=== PATIENT | female | born 1945 | race Caucasian/White ===

== ENCOUNTER 2016-05-11 22:59 | Inpatient (IN) | payer OTHER ==
[~2016-05-11] VITALS: Ht 160 cm; Wt 99.2 kg
[~2016-05-11 22:59] MED LIST: ADVAIR 250/501 DISK IH; AMLODIPINE BESY10 MG PO; CALTRATE 600 +1 EAC1 PO; CITALOPRAM HBR20 MG PO; CLONIDINE HCL0.2 MG PO; CRESTOR40 MG PO; ERGOCALCIF50000 UNIT PO; FOSAMAX PLUS PO; GABAPENTIN600 MG PO; HUMALOG MI100 UNIT/5 SC; K-DUR10 MEQ PO; LASIX20 MG PO; LEVEMIR100 UNIT/2 SC; LEVOTHYROXINE100 MCG PO; LEVOTHYROXINE50 MCG PO; LOPRESSOR25 MG PO; METFORMIN HCL500 MG PO; METRONIDAZOLE500 MG PO; NOVOLOG PE100 UNITS/ SC; NYSTATIN15 GM TP; PLAVIX75 MG PO; PROAIR HFA8.5 GM IH; SPIRIVA RESPIMAT4 GM IH; TOPROL XL100 MG PO
[2016-05-11 23:12] LABS: BASE EXCESS 0 mEq/L (-3 to +3); BICARBONATE 23.9 mEq/L (22-26); CARBOXY HGB 1.8 % (0-5); COMMENTS - BLOOD GASES C+; DEVICE NIV; FI02 100 %; METHEMOGLOBIN 1.1 % (0-1.5); MODE SPONT; PCO2 36 mm Hg (35-45); PO2 247 mm Hg (80-100); SITE LR; pH 7.43 (7.35-7.45)
[2016-05-11 23:13] LABS: TOTAL RESP RATE 31 resp/min
[2016-05-11 23:34] LABS: ADD MIUA? YES; BILIRUBIN NEGATIVE; BLOOD MODERATE; COLOR YELLOW ((YELLOW)); GLUCOSE (STRIP) >=1000; KETONES TRACE; LEUKOCYTES NEGATIVE; NITRITE NEGATIVE; PH, URINE 6.5 (5-8); PROTEIN (STRIP) >=300; SPECIFIC GRAVITY 1.021 (1.000-1.030); UROBILINOGEN 0.2 MG/DL (0.2-1.0)
[2016-05-11 23:47] LABS: HEMATOCRIT 39.6 % (36.0-46.0); MCH 27.8 PG (29.0-34.0); MCHC 33.8 G/DL (30.0-36.0); MCV 82.2 FL (83-99); PLATELET COUNT 192 K/uL (156-360); RBC DIS.WIDTH-SD 44.6 % (39-53); RED BLOOD COUNT 4.82 M/uL (3.80-5.20); WHITE BLOOD COUNT 11.4 K/uL (4.1-10.2)
[2016-05-11 23:52] LABS: BACTERIA 1+; CASTS PRESENT /LPF; CRYSTALS NONE SEEN; EPITHELIAL CELLS RARE; FINE GRANULAR CASTS 0-5 /LPF; MUCUS NONE SEEN; RED BLOOD CELLS 0-5 /HPF (0-5); UCUL ADDED? NO; WHITE BLOOD CELLS NONE SEEN /HPF (0-5)
[2016-05-11 23:55] LABS: EOSINOPHIL (%) 0.9 % (0-5); EOSINOPHIL COUNT 0.1 K/uL (0-0.3); IMMATURE GRANULOCYTE (%) 0.7 % (0.0-0.7); IMMATURE GRANULOCYTE COUNT 0.8 K/uL; LYMPHOCYTE COUNT 0.5 K/uL (1.0-2.8); MONOCYTE (%) 4.9 % (3-12); MONOCYTE COUNT 0.6 K/uL (0-0.8); NEUTROPHIL (%) 89.2 % (45-76); NEUTROPHIL COUNT 10.1 K/uL (1.8-6.4)
[2016-05-11 23:59] LABS: INTER. NORMALIZED RATIO 1.1; PROTHROMBIN TIME 11.5 (9.2-11.2)
[2016-05-12] VITALS (18 sets, daily range): BP systolic 120–179; BP diastolic 47–77
[2016-05-12 00:03] LABS: CHLORIDE 100 mEq/L (99-109); POTASSIUM 3.2 mEq/L (3.7-5.4); SODIUM 138 mEq/L (136-147)
[2016-05-12 00:06] LABS: ANION GAP 16 MEQ/L (2-14)
[2016-05-12 00:09] LABS: GFR ESTIMATE (CALCULATED) 20 mL/min/
[2016-05-12 00:10] LABS: UREA NITROGEN (BUN) 35 mg/dL (9-23)
[2016-05-12 00:11] LABS: TROP-I INTERPRETATION NEGATIVE; TROPONIN-I 0.14 ng/mL (0.0-0.30)
[2016-05-12 00:18] LABS: GLUCOSE 494 mg/dL (70-99)
[2016-05-12 00:27] LABS: INFLUENZA A VIRAL ANTIGEN NEGATIVE; INFLUENZA B VIRAL ANTIGEN NEGATIVE
[2016-05-12] MEDS ORDERED: LEVEMIR100 UNIT/2 SC ×2 (01:41→01:42)
[2016-05-12] MEDS ORDERED: ERGOCALCIF50000 UNIT PO (01:42)
[2016-05-12] MEDS ORDERED: METOPROLOL TART50 MG PO (01:44)
[2016-05-12] MEDS ORDERED: PROVENTIL,2.5 MG/3 M IH (01:46)
[2016-05-12] MEDS ORDERED: HYDROCODON-ACE1 EAC7 PO (01:46)
[2016-05-12] MEDS ORDERED: LANSOPRAZOLE30 MG PO (01:46)
[2016-05-12] MEDS ORDERED: CHLORTHALIDONE25 MG PO (01:46)
[2016-05-12] MEDS ORDERED: TRESIBA FL200 UNIT/1 SC (01:47)
[2016-05-12] MEDS ORDERED: PERCOCET 5/31 TABLET PO (01:47)
[2016-05-12] MEDS ORDERED: MICARDIS80 MG PO (01:47)
[2016-05-12] MEDS ORDERED: APRESOLINE50 MG PO (01:49)
[2016-05-12 03:19] LABS: BASE EXCESS -4.1 mEq/L (-3 to +3); BICARBONATE 20.9 mEq/L (22-26); CARBOXY HGB 1.6 % (0-5); PCO2 37 mm Hg (35-45); pH 7.36 (7.35-7.45)
[2016-05-12 03:20] LABS: COMMENTS - BLOOD GASES C+; DEVICE NC; O2 FLOW 3 L/MIN; PO2 67 mm Hg (80-100); SITE RR; TOTAL RESP RATE 25 resp/min
[2016-05-12 03:37] LABS: POINT-OF-CARE METER ID UU13113702
[2016-05-12 05:26] LABS: METH RESISTANT S AUREUS PCR NEGATIVE (NEGATIVE)
[2016-05-12 05:39] LABS: PROBE CHECK PASS; SPECIMEN PROCESSING CONTROL PASS
[2016-05-12 06:28] LABS: HEMATOCRIT 37.2 % (36.0-46.0); MCH 27.4 PG (29.0-34.0); MCV 85.7 FL (83-99); MEAN PLAT.VOLUME 10.6 uM^3 (9.5-12.4); PLATELET COUNT 182 K/uL (156-360); RBC DIS.WIDTH-CV 15.3 % (11.8-14.6); RBC DIS.WIDTH-SD 47.8 % (39-53); RED BLOOD COUNT 4.34 M/uL (3.80-5.20); WHITE BLOOD COUNT 12.8 K/uL (4.1-10.2)
[2016-05-12 06:46] LABS: EOSINOPHIL (%) 0 % (0-5); IMMATURE GRANULOCYTE (%) 0.3 % (0.0-0.7); LYMPHOCYTE COUNT 0.6 K/uL (1.0-2.8); MONOCYTE COUNT 0.8 K/uL (0-0.8); NEUTROPHIL (%) 88.7 % (45-76); NEUTROPHIL COUNT 11.3 K/uL (1.8-6.4)
[2016-05-12 06:57] LABS: TROP-I INTERPRETATION NEGATIVE; TROPONIN-I 0.17 ng/mL (0.0-0.30)
[2016-05-12 07:08] LABS: ANION GAP 17 MEQ/L (2-14); CHLORIDE 101 MEQ/L (99-109); GFR ESTIMATE (CALCULATED) 22 mL/min/; GLUCOSE 438 mg/dL (70-99); POTASSIUM 3.3 MEQ/L (3.7-5.4); SAMPLE HEMOLYSIS CHECK 0; SAMPLE ICTERIC CHECK 0; SAMPLE LIPEMIA CHECK 0; SODIUM 139 MEQ/L (136-147); UREA NITROGEN (BUN) 36 mg/dL (9-23)
[2016-05-12 09:14] LABS: INTERNAL CONTROL VALID? YES
[2016-05-12 10:13] LABS: C DIFF TOXIN NEGATIVE (NEGATIVE)
[2016-05-12 10:15] LABS: PROBE CHECK PASS; SPECIMEN PROCESSING CONTROL PASS
[2016-05-12 12:02] LABS: TROP-I INTERPRETATION NEGATIVE; TROPONIN-I 0.12 ng/mL (0.0-0.30)
[2016-05-12 12:13] LABS: BASE EXCESS -2.8 mEq/L (-3 to +3); BICARBONATE 23.2 mEq/L (22-26); CARBOXY HGB 2.2 % (0-5); COMMENTS - BLOOD GASES A+C+; DEVICE NC; METHEMOGLOBIN 1.3 % (0-1.5); O2 FLOW 3 L/MIN; PCO2 44 mm Hg (35-45); PO2 79 mm Hg (80-100); SITE LR; TOTAL RESP RATE 20 resp/min; pH 7.33 (7.35-7.45)
[2016-05-12 12:14] LABS: POINT-OF-CARE METER ID UU14174217
[2016-05-12 17:07] LABS: POINT-OF-CARE METER ID UU14174217
[2016-05-12 21:22] LABS: POINT-OF-CARE METER ID UU14174217
[2016-05-13] VITALS (13 sets, daily range): BP systolic 90–146; BP diastolic 35–111
[2016-05-13 08:32] LABS: HEMATOCRIT 34.5 % (36.0-46.0); MCHC 32.8 G/DL (30.0-36.0); MCV 85.6 FL (83-99); MEAN PLAT.VOLUME 10.7 uM^3 (9.5-12.4); PLATELET COUNT 182 K/uL (156-360); RBC DIS.WIDTH-CV 15.6 % (11.8-14.6); RED BLOOD COUNT 4.03 M/uL (3.80-5.20)
[2016-05-13 09:21] LABS: TROP-I INTERPRETATION NEGATIVE; TROPONIN-I 0.15 ng/mL (0.0-0.30)
[2016-05-13 09:22] LABS: ANION GAP 13 MEQ/L (2-14); CHLORIDE 103 MEQ/L (99-109); GFR ESTIMATE (CALCULATED) 15 mL/min/; GLUCOSE 284 mg/dL (70-99); SAMPLE HEMOLYSIS CHECK 0; SAMPLE ICTERIC CHECK 0; SAMPLE LIPEMIA CHECK 0; SODIUM 134 MEQ/L (136-147); UREA NITROGEN (BUN) 48 mg/dL (9-23)
[2016-05-13 13:21] LABS: VANCOMYCIN, TROUGH 11.4 MCG/ML (10-20)
[2016-05-13 16:48] LABS: CREATINE KINASE 81 IU/L (1-294)
[2016-05-13 19:20] LABS: ANION GAP 12 MEQ/L (2-14); CHLORIDE 99 MEQ/L (99-109); GFR ESTIMATE (CALCULATED) 13 mL/min/; POTASSIUM 3.3 MEQ/L (3.7-5.4); SAMPLE HEMOLYSIS CHECK 0; SAMPLE ICTERIC CHECK 0; SAMPLE LIPEMIA CHECK 0; SODIUM 129 MEQ/L (136-147); UREA NITROGEN (BUN) 59 mg/dL (9-23)
[2016-05-13 19:40] LABS: GLUCOSE 436 mg/dL (70-99)
[2016-05-14] VITALS (21 sets, daily range): BP systolic 88–138; BP diastolic 32–77
[2016-05-14 01:45] LABS: POINT-OF-CARE METER ID UU14162636; POINT-OF-CARE USER ID ENVSME70
[2016-05-14 02:31] LABS: POINT-OF-CARE METER ID UU14162636
[2016-05-14 03:44] LABS: POINT-OF-CARE METER ID UU14162636
[2016-05-14 04:53] LABS: POINT-OF-CARE METER ID UU14162636
[2016-05-14 05:45] LABS: POINT-OF-CARE METER ID UU14162636
[2016-05-14 06:02] LABS: HEMATOCRIT 32.2 % (36.0-46.0); MCH 27.1 PG (29.0-34.0); MCV 84.7 FL (83-99); PLATELET COUNT 199 K/uL (156-360); RBC DIS.WIDTH-CV 15.7 % (11.8-14.6); RBC DIS.WIDTH-SD 48.6 % (39-53); WHITE BLOOD COUNT 15.2 K/uL (4.1-10.2)
[2016-05-14 06:47] LABS: ANION GAP 15 MEQ/L (2-14); CHLORIDE 102 MEQ/L (99-109); GFR ESTIMATE (CALCULATED) 11 mL/min/; GLUCOSE 221 mg/dL (70-99); IRON 33 MCG/DL (35-150); MAGNESIUM 1.9 mg/dl (1.3-2.7); POTASSIUM 3.5 MEQ/L (3.7-5.4); SAMPLE HEMOLYSIS CHECK 0; SAMPLE ICTERIC CHECK 0; SAMPLE LIPEMIA CHECK 0; SODIUM 133 MEQ/L (136-147); UREA NITROGEN (BUN) 70 mg/dL (9-23)
[2016-05-14 06:51] LABS: POINT-OF-CARE METER ID UU13113803
[2016-05-14 07:37] LABS: INTACT PARATHYROID HORMONE 413 pg/mL (10-69)
[2016-05-14 07:56] LABS: POINT-OF-CARE METER ID UU13113803
[2016-05-14 08:57] LABS: POINT-OF-CARE METER ID UU13113803
[2016-05-14 09:57] LABS: POINT-OF-CARE METER ID UU13113803
[2016-05-14 10:48] LABS: POINT-OF-CARE METER ID UU13113803
[2016-05-14 11:25] LABS: UR CREATININE CONCENTRATION 125.1 MG/DL
[2016-05-14 11:32] LABS: POINT-OF-CARE METER ID UU13113803
[2016-05-14 12:35] LABS: POINT-OF-CARE METER ID UU13113803
[2016-05-14 13:37] LABS: POINT-OF-CARE METER ID UU13113803
[2016-05-14 14:41] LABS: POINT-OF-CARE METER ID UU13113803
[2016-05-14 15:55] LABS: POINT-OF-CARE METER ID UU13113803
[2016-05-14 17:58] LABS: POINT-OF-CARE METER ID UU14162636
[2016-05-14 21:47] LABS: POINT-OF-CARE METER ID UU14162636
[2016-05-15] VITALS (13 sets, daily range): BP systolic 99–122; BP diastolic 38–58
[2016-05-15 06:59] LABS: ANION GAP 16 MEQ/L (2-14); CHLORIDE 100 MEQ/L (99-109); GFR ESTIMATE (CALCULATED) 10 mL/min/; GLUCOSE 314 mg/dL (70-99); SAMPLE HEMOLYSIS CHECK 0; SAMPLE ICTERIC CHECK 0; SAMPLE LIPEMIA CHECK 0; SODIUM 132 MEQ/L (136-147); UREA NITROGEN (BUN) 87 mg/dL (9-23)
[2016-05-15 07:00] LABS: MAGNESIUM 2.6 mg/dl (1.3-2.7); POTASSIUM 4.3 MEQ/L (3.7-5.4)
[2016-05-15 09:21] LABS: POINT-OF-CARE METER ID UU14162636
[2016-05-15 10:05] LABS: POINT-OF-CARE METER ID UU14162636
[2016-05-15 10:05] LABS: POINT-OF-CARE METER ID UU13113748
[2016-05-15 10:05] LABS: POINT-OF-CARE METER ID UU14162636
[2016-05-15 10:05] LABS: POINT-OF-CARE METER ID UU14162636
[2016-05-15 10:05] LABS: POINT-OF-CARE METER ID UU13113748
[2016-05-15 10:05] LABS: POINT-OF-CARE METER ID UU13113748
[2016-05-15 21:50] LABS: POINT-OF-CARE METER ID UU13113698
[2016-05-16] VITALS (7 sets, daily range): BP systolic 97–134; BP diastolic 54–77
[2016-05-16 02:49] LABS: POINT-OF-CARE METER ID UU13113698
[2016-05-16 05:28] LABS: EOSINOPHIL (%) 0.4 % (0-5); EOSINOPHIL COUNT 0.1 K/uL (0-0.3); HEMATOCRIT 34.2 % (36.0-46.0); IMMATURE GRANULOCYTE (%) 1.8 % (0.0-0.7); IMMATURE GRANULOCYTE COUNT 0.3 K/uL; LYMPHOCYTE COUNT 0.5 K/uL (1.0-2.8); MCH 27.8 PG (29.0-34.0); MCV 84.2 FL (83-99); MONOCYTE (%) 3.5 % (3-12); MONOCYTE COUNT 0.6 K/uL (0-0.8); NEUTROPHIL (%) 91.3 % (45-76); NEUTROPHIL COUNT 16.6 K/uL (1.8-6.4); RED BLOOD COUNT 4.06 M/uL (3.80-5.20); WHITE BLOOD COUNT 18.1 K/uL (4.1-10.2)
[2016-05-16 05:53] LABS: ANION GAP 18 MEQ/L (2-14); CHLORIDE 97 MEQ/L (99-109); GFR ESTIMATE (CALCULATED) 8 mL/min/; GLUCOSE 256 mg/dL (70-99); SAMPLE HEMOLYSIS CHECK 0; SAMPLE ICTERIC CHECK 0; SAMPLE LIPEMIA CHECK 0; SODIUM 131 MEQ/L (136-147); UREA NITROGEN (BUN) 99 mg/dL (9-23); URIC ACID 11.3 mg/dL (3.1-9.2)
[2016-05-16 05:59] LABS: MEAN PLAT.VOLUME 10.6 uM^3 (9.5-12.4)
[2016-05-16 06:01] LABS: PLATELET COUNT 284 K/uL (156-360)
[2016-05-16 10:22] LABS: POINT-OF-CARE USER ID NUTSLF44
[2016-05-16 18:37] LABS: POINT-OF-CARE METER ID UU14174216
[2016-05-17 04:45] VITALS: BP 127/68
[2016-05-17 05:01] LABS: HEMATOCRIT 37.1 % (36.0-46.0); MCH 27.5 PG (29.0-34.0); MCHC 33.7 G/DL (30.0-36.0); MCV 81.7 FL (83-99); MEAN PLAT.VOLUME 10.6 uM^3 (9.5-12.4); PLATELET COUNT 351 K/uL (156-360); RBC DIS.WIDTH-CV 16.1 % (11.8-14.6); RBC DIS.WIDTH-SD 47.6 % (39-53); RED BLOOD COUNT 4.54 M/uL (3.80-5.20); WHITE BLOOD COUNT 22.7 K/uL (4.1-10.2)
[2016-05-17 05:13] LABS: CHLORIDE 99 mEq/L (99-109); SODIUM 131 mEq/L (136-147)
[2016-05-17 05:14] LABS: POTASSIUM 5.2 mEq/L (3.7-5.4)
[2016-05-17 05:15] LABS: GLUCOSE 276 mg/dL (70-99)
[2016-05-17 05:19] LABS: GFR ESTIMATE (CALCULATED) 7 mL/min/
[2016-05-17 05:20] LABS: UREA NITROGEN (BUN) 121 mg/dL (9-23)
[2016-05-17 05:29] LABS: ANION GAP 18 MEQ/L (2-14)
[2016-05-17 07:53] LABS: POINT-OF-CARE METER ID UU13113698
[2016-05-17 08:00] VITALS: BP 133/60
[2016-05-17 10:32] LABS: ANTI-HEPATITIS B CORE (TOTAL) Nonreactive; HBCT INDEX 0.03
[2016-05-17 10:33] LABS: HBSG INDEX 0.15; HPCA INDEX 0.05
[2016-05-17 10:34] LABS: HEPATITIS B SURFACE ANTIBODY Nonreactive
[2016-05-17 11:30] VITALS: BP 126/56
[2016-05-17 16:53] LABS: POINT-OF-CARE METER ID UU13113698
[2016-05-17 19:45] VITALS: BP 134/61
[2016-05-17 23:55] VITALS: BP 134/63
[2016-05-18 00:30] LABS: COMMENTS - BLOOD GASES C+A+; CONTINUOUS POS AIRWAY PRESSURE 8 cm H2O; DEVICE CPAP; O2 FLOW 4 L/MIN; PCO2 35 mm Hg (35-45); PO2 68 mm Hg (80-100); SITE LR; pH 7.34 (7.35-7.45)
[2016-05-18 00:31] LABS: BASE EXCESS -6.2 mEq/L (-3 to +3); BICARBONATE 18.9 mEq/L (22-26); METHEMOGLOBIN 1.6 % (0-1.5); TOTAL RESP RATE 20 resp/min
[2016-05-18 04:50] VITALS: BP 124/60
[2016-05-18 05:07] LABS: HEMATOCRIT 35.1 % (36.0-46.0); MCHC 33.3 G/DL (30.0-36.0); MCV 81.1 FL (83-99); PLATELET COUNT 330 K/uL (156-360); RBC DIS.WIDTH-SD 46.8 % (39-53); RED BLOOD COUNT 4.33 M/uL (3.80-5.20); WHITE BLOOD COUNT 20.7 K/uL (4.1-10.2)
[2016-05-18 05:12] LABS: CHLORIDE 102 mEq/L (99-109); POTASSIUM 4.5 mEq/L (3.7-5.4); SODIUM 135 mEq/L (136-147)
[2016-05-18 05:14] LABS: GLUCOSE 206 mg/dL (70-99)
[2016-05-18 05:15] LABS: ANION GAP 16 MEQ/L (2-14)
[2016-05-18 05:17] LABS: GFR ESTIMATE (CALCULATED) 8 mL/min/
[2016-05-18 05:20] LABS: UREA NITROGEN (BUN) 103 mg/dL (9-23)
[2016-05-18 07:15] VITALS: BP 132/59
[2016-05-18 07:26] LABS: POINT-OF-CARE METER ID UU13113781
[2016-05-18 11:30] VITALS: BP 149/70
[2016-05-18 11:30] LABS: POINT-OF-CARE METER ID UU13113781
[2016-05-18 16:07] LABS: POINT-OF-CARE METER ID UU13113698
[2016-05-18 16:45] VITALS: BP 138/72
[2016-05-18 21:05] VITALS: BP 162/70
[2016-05-18 21:23] LABS: POINT-OF-CARE METER ID UU13113781
[2016-05-19 00:08] VITALS: BP 145/63
[2016-05-19 04:08] VITALS: BP 138/63
[2016-05-19 07:50] LABS: HEMATOCRIT 34.6 % (36.0-46.0); MCH 27.4 PG (29.0-34.0); MCHC 32.7 G/DL (30.0-36.0); MCV 83.8 FL (83-99); PLATELET COUNT 313 K/uL (156-360); RBC DIS.WIDTH-CV 16.5 % (11.8-14.6); RBC DIS.WIDTH-SD 50.9 % (39-53); RED BLOOD COUNT 4.13 M/uL (3.80-5.20); WHITE BLOOD COUNT 21.5 K/uL (4.1-10.2)
[2016-05-19 08:07] LABS: ANION GAP 22 MEQ/L (2-14); CHLORIDE 94 MEQ/L (99-109); GFR ESTIMATE (CALCULATED) 8 mL/min/; GLUCOSE 170 mg/dL (70-99); MAGNESIUM 2.4 mg/dl (1.3-2.7); POTASSIUM 4.6 MEQ/L (3.7-5.4); SAMPLE HEMOLYSIS CHECK 0; SAMPLE ICTERIC CHECK 0; SAMPLE LIPEMIA CHECK 0; SODIUM 136 MEQ/L (136-147); UREA NITROGEN (BUN) 90 mg/dL (9-23)
[2016-05-19 11:40] LABS: POINT-OF-CARE METER ID UU13113698
[2016-05-19 12:00] VITALS: BP 148/94
[2016-05-19 16:44] LABS: POINT-OF-CARE METER ID UU13113698
[2016-05-19 17:57] VITALS: BP 138/95
[2016-05-19 20:13] VITALS: BP 136/62
[2016-05-19 23:16] VITALS: BP 159/70
[2016-05-20 03:45] VITALS: BP 183/78
[2016-05-20 06:19] LABS: POINT-OF-CARE METER ID UU13113725
[2016-05-20 07:22] LABS: ANION GAP 16 MEQ/L (2-14); CHLORIDE 97 MEQ/L (99-109); GFR ESTIMATE (CALCULATED) 11 mL/min/; GLUCOSE 203 mg/dL (70-99); MAGNESIUM 2.2 mg/dl (1.3-2.7); POTASSIUM 4.2 MEQ/L (3.7-5.4); SAMPLE HEMOLYSIS CHECK 0; SAMPLE ICTERIC CHECK 0; SAMPLE LIPEMIA CHECK 0; SODIUM 135 MEQ/L (136-147); UREA NITROGEN (BUN) 70 mg/dL (9-23)
[2016-05-20 07:27] LABS: HEMATOCRIT 33.7 % (36.0-46.0); MCH 27.4 PG (29.0-34.0); MCHC 32.6 G/DL (30.0-36.0); PLATELET COUNT 313 K/uL (156-360); RBC DIS.WIDTH-CV 16.2 % (11.8-14.6); RBC DIS.WIDTH-SD 49.3 % (39-53); RED BLOOD COUNT 4.01 M/uL (3.80-5.20); WHITE BLOOD COUNT 22.1 K/uL (4.1-10.2)
[2016-05-20 08:32] VITALS: BP 151/69
[2016-05-20 16:07] LABS: POINT-OF-CARE METER ID UU13113725
[2016-05-20 16:22] VITALS: BP 1518/72
[2016-05-20 20:37] LABS: POINT-OF-CARE METER ID UU13113725
[2016-05-20 22:26] VITALS: BP 148/67
[2016-05-21 03:03] VITALS: BP 156/81
[2016-05-21 04:58] LABS: CHLORIDE 99 mEq/L (99-109); POTASSIUM 4.5 mEq/L (3.7-5.4); SODIUM 135 mEq/L (136-147)
[2016-05-21 05:02] LABS: ANION GAP 18 MEQ/L (2-14)
[2016-05-21 05:04] LABS: GFR ESTIMATE (CALCULATED) 10 mL/min/
[2016-05-21 05:05] LABS: UREA NITROGEN (BUN) 96 mg/dL (9-23)
[2016-05-21 05:07] LABS: GLUCOSE 318 mg/dL (70-99)
[2016-05-21 06:02] LABS: POINT-OF-CARE METER ID UU13113725
[2016-05-21 07:09] LABS: NRBC (%) 0.1 /100 WBC (0-0)
[2016-05-21 07:38] LABS: HEMATOCRIT 35.3 % (36.0-46.0); MCH 27.1 PG (29.0-34.0); MCHC 31.7 G/DL (30.0-36.0); MCV 85.3 FL (83-99); MEAN PLAT.VOLUME 10.9 uM^3 (9.5-12.4); RBC DIS.WIDTH-CV 16.1 % (11.8-14.6); RBC DIS.WIDTH-SD 49.7 % (39-53); RED BLOOD COUNT 4.14 M/uL (3.80-5.20)
[2016-05-21 07:41] LABS: DELETE MACHINE DIFF? YES; PLATELET COUNT 407 K/uL (156-360); WHITE BLOOD COUNT 29.2 K/uL (4.1-10.2)
[2016-05-21 07:49] LABS: ABS NEUTROPHIL COUNT 27.17; ANISOCYTOSIS 1+; BASOPHIL COUNT 0.1 K/uL (0-0.1); EOSINOPHIL (%) 0 % (0-5); IMMATURE GRANULOCYTE (%) 5.4 % (0.0-0.7); IMMATURE GRANULOCYTE COUNT 1.6 K/uL; LYMPHOCYTE COUNT 0.9 K/uL (1.0-2.8); MACROCYTES OCC; MONOCYTE (%) 1.1 % (3-12); MONOCYTE COUNT 0.3 K/uL (0-0.8); NEUTROPHIL (%) 90.3 % (45-76); NEUTROPHIL COUNT 26.4 K/uL (1.8-6.4); PLAT.SUFFICIENCY INCREASED; USER ID CCL
[2016-05-21 12:04] LABS: POINT-OF-CARE METER ID UU13113717
[2016-05-21 13:25] VITALS: BP 141/65
[2016-05-21 15:00] VITALS: BP 171/74
[2016-05-21 15:50] LABS: POINT-OF-CARE METER ID UU13113725
[2016-05-21 19:30] VITALS: BP 133/61
[2016-05-21 21:03] LABS: POINT-OF-CARE METER ID UU13113725
[2016-05-21 23:21] VITALS: BP 158/71
[2016-05-22 03:59] VITALS: BP 147/82
[2016-05-22 05:00] LABS: CHLORIDE 103 mEq/L (99-109); POTASSIUM 4.7 mEq/L (3.7-5.4); SODIUM 138 mEq/L (136-147)
[2016-05-22 05:01] LABS: GLUCOSE 191 mg/dL (70-99)
[2016-05-22 05:03] LABS: ANION GAP 16 MEQ/L (2-14)
[2016-05-22 05:05] LABS: GFR ESTIMATE (CALCULATED) 13 mL/min/
[2016-05-22 05:06] LABS: UREA NITROGEN (BUN) 71 mg/dL (9-23)
[2016-05-22 05:57] LABS: POINT-OF-CARE METER ID UU13113725
[2016-05-22 07:37] VITALS: BP 133/63
[2016-05-22 08:07] LABS: HEMATOCRIT 36.9 % (36.0-46.0); MCH 27.4 PG (29.0-34.0); MCHC 31.7 G/DL (30.0-36.0); MCV 86.4 FL (83-99); PLATELET COUNT 350 K/uL (156-360); RBC DIS.WIDTH-CV 16.3 % (11.8-14.6); RBC DIS.WIDTH-SD 51.2 % (39-53); RED BLOOD COUNT 4.27 M/uL (3.80-5.20); WHITE BLOOD COUNT 25.1 K/uL (4.1-10.2)
[2016-05-22 08:43] LABS: EOSINOPHIL (%) 0 % (0-5); HEMATOLOGY COMMENT 1 SMEAR COMPATIBLE; IMMATURE GRANULOCYTE (%) 3.2 % (0.0-0.7); IMMATURE GRANULOCYTE COUNT 0.8 K/uL; LYMPHOCYTE COUNT 0.8 K/uL (1.0-2.8); MONOCYTE (%) 0.3 % (3-12); MONOCYTE COUNT 0.1 K/uL (0-0.8); NEUTROPHIL (%) 93.4 % (45-76); NEUTROPHIL COUNT 23.4 K/uL (1.8-6.4); USER ID SDF
[2016-05-22 11:31] LABS: POINT-OF-CARE METER ID UU13113725
[2016-05-22 11:46] VITALS: BP 170/74
[2016-05-22 15:27] VITALS: BP 160/75
[2016-05-22 16:29] LABS: POINT-OF-CARE METER ID UU13113725
[2016-05-22 19:48] VITALS: BP 177/78
[2016-05-22 21:27] LABS: POINT-OF-CARE METER ID UU13113725
[2016-05-22 23:39] VITALS: BP 160/74
[2016-05-23 03:50] VITALS: BP 161/72
[2016-05-23 06:25] LABS: POINT-OF-CARE METER ID UU13113717
[2016-05-23 07:00] LABS: ANION GAP 15 MEQ/L (2-14); CHLORIDE 102 MEQ/L (99-109); GFR ESTIMATE (CALCULATED) 12 mL/min/; GLUCOSE 236 mg/dL (70-99); POTASSIUM 4.1 MEQ/L (3.7-5.4); SAMPLE HEMOLYSIS CHECK 0; SAMPLE ICTERIC CHECK 0; SAMPLE LIPEMIA CHECK 0; SODIUM 139 MEQ/L (136-147); UREA NITROGEN (BUN) 89 mg/dL (9-23)
[2016-05-23 07:19] VITALS: BP 145/67
[2016-05-23 11:14] VITALS: BP 147/63
[2016-05-23 15:26] VITALS: BP 143/65
[2016-05-23 20:57] VITALS: BP 166/72
[2016-05-23 23:35] VITALS: BP 165/70
[2016-05-24] VITALS (7 sets, daily range): BP systolic 124–195; BP diastolic 58–75
[2016-05-24 07:52] LABS: ANION GAP 16 MEQ/L (2-14); CHLORIDE 102 MEQ/L (99-109); GFR ESTIMATE (CALCULATED) 12 mL/min/; POTASSIUM 4.2 MEQ/L (3.7-5.4); SAMPLE HEMOLYSIS CHECK 0; SAMPLE ICTERIC CHECK 0; SAMPLE LIPEMIA CHECK 0; SODIUM 141 MEQ/L (136-147); UREA NITROGEN (BUN) 93 mg/dL (9-23)
[2016-05-24 07:55] LABS: HEMATOCRIT 35.9 % (36.0-46.0); MCH 26.8 PG (29.0-34.0); MCHC 31.5 G/DL (30.0-36.0); MCV 85.1 FL (83-99); MEAN PLAT.VOLUME 10.8 uM^3 (9.5-12.4); PLATELET COUNT 318 K/uL (156-360); RBC DIS.WIDTH-SD 49.2 % (39-53); RED BLOOD COUNT 4.22 M/uL (3.80-5.20); WHITE BLOOD COUNT 24.7 K/uL (4.1-10.2)
[2016-05-24 08:01] LABS: GLUCOSE 47 mg/dL (70-99)
[2016-05-24 16:04] LABS: BASE EXCESS -2.7 mEq/L (-3 to +3); BICARBONATE 22.6 mEq/L (22-26); CARBOXY HGB 1.8 % (0-5); METHEMOGLOBIN 1.8 % (0-1.5); pH 7.36 (7.35-7.45)
[2016-05-24 16:05] LABS: COMMENTS - BLOOD GASES A+C+; DEVICE NC; O2 FLOW 2 L/MIN; PCO2 40 mm Hg (35-45); PO2 91 mm Hg (80-100); SITE LR; TOTAL RESP RATE 20 resp/min
[2016-05-24 16:31] LABS: POINT-OF-CARE METER ID UU13113725
[2016-05-25 04:05] VITALS: BP 161/67
[2016-05-25 06:27] LABS: ANION GAP 14 MEQ/L (2-14); CHLORIDE 104 MEQ/L (99-109); GFR ESTIMATE (CALCULATED) 13 mL/min/; POTASSIUM 4.1 MEQ/L (3.7-5.4); SAMPLE HEMOLYSIS CHECK 0; SAMPLE ICTERIC CHECK 0; SAMPLE LIPEMIA CHECK 0; SODIUM 140 MEQ/L (136-147); UREA NITROGEN (BUN) 92 mg/dL (9-23)
[2016-05-25 06:28] LABS: GLUCOSE 221 mg/dL (70-99)
[2016-05-25 08:13] VITALS: BP 137/65
[2016-05-25 15:32] VITALS: BP 166/69
[2016-05-25 16:47] VITALS: BP 166/69
[2016-05-25 20:18] VITALS: BP 145/75
[2016-05-25 23:29] VITALS: BP 155/79
[2016-05-26 06:44] LABS: ANION GAP 14 MEQ/L (2-14); CHLORIDE 102 MEQ/L (99-109); GFR ESTIMATE (CALCULATED) 13 mL/min/; GLUCOSE 196 mg/dL (70-99); POTASSIUM 4.6 MEQ/L (3.7-5.4); SAMPLE HEMOLYSIS CHECK 0; SAMPLE ICTERIC CHECK 0; SAMPLE LIPEMIA CHECK 0; SODIUM 141 MEQ/L (136-147); UREA NITROGEN (BUN) 92 mg/dL (9-23)
[2016-05-26 07:20] VITALS: BP 158/71
[2016-05-26 12:16] LABS: POINT-OF-CARE METER ID UU13113725
[2016-05-26 16:29] VITALS: BP 156/69
[2016-05-26 22:42] VITALS: BP 133/60
[2016-05-27 06:25] LABS: ANION GAP 12 MEQ/L (2-14); CHLORIDE 101 MEQ/L (99-109); GFR ESTIMATE (CALCULATED) 14 mL/min/; GLUCOSE 201 mg/dL (70-99); POTASSIUM 4.7 MEQ/L (3.7-5.4); SAMPLE HEMOLYSIS CHECK 0; SAMPLE ICTERIC CHECK 0; SAMPLE LIPEMIA CHECK 0; SODIUM 138 MEQ/L (136-147); UREA NITROGEN (BUN) 89 mg/dL (9-23)
[2016-05-27 06:32] LABS: HEMATOCRIT 31.6 % (36.0-46.0); MCH 26.6 PG (29.0-34.0); MCV 85.6 FL (83-99); RBC DIS.WIDTH-CV 16.1 % (11.8-14.6); RED BLOOD COUNT 3.69 M/uL (3.80-5.20)
[2016-05-27 06:36] LABS: WHITE BLOOD COUNT 11.9 K/uL (4.1-10.2)
[2016-05-27 07:20] VITALS: BP 167/94
[2016-05-27 08:02] LABS: PLATELET COUNT 218 K/uL (156-360)
[2016-05-27 16:31] VITALS: BP 132/88
[2016-05-27 20:53] VITALS: BP 145/65
[2016-05-27 21:11] LABS: POINT-OF-CARE METER ID UU13113717
[2016-05-27 21:13] VITALS: BP 124/57
[2016-05-27 22:45] VITALS: BP 147/61
[2016-05-28 06:17] LABS: HEMATOCRIT 34.2 % (36.0-46.0); MCH 27.3 PG (29.0-34.0); MCHC 31.6 G/DL (30.0-36.0); MCV 86.6 FL (83-99); PLATELET COUNT 211 K/uL (156-360); RBC DIS.WIDTH-CV 16.2 % (11.8-14.6); RBC DIS.WIDTH-SD 51.6 % (39-53); RED BLOOD COUNT 3.95 M/uL (3.80-5.20); WHITE BLOOD COUNT 12.3 K/uL (4.1-10.2)
[2016-05-28 06:41] LABS: POINT-OF-CARE METER ID UU13113725
[2016-05-28 06:52] LABS: ANION GAP 14 MEQ/L (2-14); CHLORIDE 100 MEQ/L (99-109); GFR ESTIMATE (CALCULATED) 14 mL/min/; GLUCOSE 130 mg/dL (70-99); POTASSIUM 4.6 MEQ/L (3.7-5.4); SAMPLE HEMOLYSIS CHECK 0; SAMPLE ICTERIC CHECK 0; SAMPLE LIPEMIA CHECK 0; SODIUM 139 MEQ/L (136-147); UREA NITROGEN (BUN) 94 mg/dL (9-23)
[2016-05-28 08:38] VITALS: BP 189/81
[2016-05-28 11:41] LABS: POINT-OF-CARE METER ID UU13113717
[2016-05-28 15:51] VITALS: BP 159/68
[2016-05-28 16:26] LABS: POINT-OF-CARE METER ID UU13113717
[2016-05-28 21:03] LABS: POINT-OF-CARE METER ID UU13113725
[2016-05-28 23:26] VITALS: BP 172/74
[2016-05-29 04:33] LABS: MCH 27.2 PG (29.0-34.0); MCHC 31.8 G/DL (30.0-36.0); MCV 85.6 FL (83-99); MEAN PLAT.VOLUME 10.5 uM^3 (9.5-12.4); PLATELET COUNT 188 K/uL (156-360); RBC DIS.WIDTH-CV 16.2 % (11.8-14.6); RBC DIS.WIDTH-SD 49.3 % (39-53); RED BLOOD COUNT 3.97 M/uL (3.80-5.20); WHITE BLOOD COUNT 10.3 K/uL (4.1-10.2)
[2016-05-29 04:47] LABS: CHLORIDE 102 mEq/L (99-109); POTASSIUM 4.6 mEq/L (3.7-5.4); SODIUM 140 mEq/L (136-147)
[2016-05-29 04:49] LABS: GLUCOSE 206 mg/dL (70-99)
[2016-05-29 04:50] LABS: ANION GAP 14 MEQ/L (2-14)
[2016-05-29 04:53] LABS: GFR ESTIMATE (CALCULATED) 11 mL/min/
[2016-05-29 05:08] LABS: UREA NITROGEN (BUN) 110 mg/dL (9-23)
[2016-05-29 07:50] VITALS: BP 134/71
[2016-05-29 11:34] LABS: POINT-OF-CARE METER ID UU13113725
[2016-05-29 18:16] LABS: POINT-OF-CARE METER ID UU13113725
[2016-05-29 20:54] LABS: POINT-OF-CARE METER ID UU13113725
[2016-05-29 23:31] VITALS: BP 112/53
[2016-05-30 04:46] LABS: CHLORIDE 105 mEq/L (99-109); POTASSIUM 4.3 mEq/L (3.7-5.4); SODIUM 143 mEq/L (136-147)
[2016-05-30 04:50] LABS: ANION GAP 13 MEQ/L (2-14)
[2016-05-30 04:52] LABS: GFR ESTIMATE (CALCULATED) 16 mL/min/
[2016-05-30 04:53] LABS: UREA NITROGEN (BUN) 68 mg/dL (9-23)
[2016-05-30 04:58] LABS: GLUCOSE 61 mg/dL (70-99)
[2016-05-30 05:49] LABS: POINT-OF-CARE METER ID UU13113725
[2016-05-30 07:53] VITALS: BP 130/58
[2016-05-30 11:00] LABS: POINT-OF-CARE METER ID UU13113725
[2016-05-30 11:13] VITALS: BP 108/55
[2016-05-30 16:11] VITALS: BP 181/67
[2016-05-30 23:36] VITALS: BP 116/55
[2016-05-31 04:44] LABS: CHLORIDE 105 mEq/L (99-109); POTASSIUM 4.7 mEq/L (3.7-5.4); SODIUM 143 mEq/L (136-147)
[2016-05-31 04:47] LABS: ANION GAP 13 MEQ/L (2-14)
[2016-05-31 04:50] LABS: GFR ESTIMATE (CALCULATED) 11 mL/min/
[2016-05-31 04:51] LABS: UREA NITROGEN (BUN) 97 mg/dL (9-23)
[2016-05-31 04:55] LABS: GLUCOSE 232 mg/dL (70-99)
[2016-05-31 06:21] LABS: POINT-OF-CARE METER ID UU13113725
[2016-05-31 08:47] VITALS: BP 134/64
[2016-05-31 15:47] VITALS: BP 147/69
[2016-05-31 16:18] LABS: POINT-OF-CARE METER ID UU13113725
[2016-05-31 23:33] VITALS: BP 155/56
[2016-06-01 03:31] VITALS: BP 155/76
[2016-06-01 07:22] LABS: HEMATOCRIT 31.8 % (36.0-46.0); MCH 27.2 PG (29.0-34.0); MCHC 30.5 G/DL (30.0-36.0); MCV 89.1 FL (83-99); MEAN PLAT.VOLUME 10.4 uM^3 (9.5-12.4); PLATELET COUNT 138 K/uL (156-360); RBC DIS.WIDTH-CV 16.6 % (11.8-14.6); RBC DIS.WIDTH-SD 53.9 % (39-53); RED BLOOD COUNT 3.57 M/uL (3.80-5.20)
[2016-06-01 07:27] LABS: WHITE BLOOD COUNT 5.8 K/uL (4.1-10.2)
[2016-06-01 07:30] VITALS: BP 159/77
[2016-06-01 08:34] LABS: ANION GAP 14 MEQ/L (2-14); CHLORIDE 103 MEQ/L (99-109); GFR ESTIMATE (CALCULATED) 12 mL/min/; GLUCOSE 336 mg/dL (70-99); POTASSIUM 4.2 MEQ/L (3.7-5.4); SAMPLE HEMOLYSIS CHECK 0; SAMPLE ICTERIC CHECK 0; SAMPLE LIPEMIA CHECK 0; SODIUM 142 MEQ/L (136-147); THEOPHYLLINE 6.4 MCG/ML (10-20); UREA NITROGEN (BUN) 93 mg/dL (9-23)
[2016-06-01 11:22] VITALS: BP 164/71
[2016-06-01 16:45] VITALS: BP 128/58
[2016-06-01 19:13] VITALS: BP 134/60
[2016-06-01 22:33] VITALS: BP 149/65
[2016-06-02 00:48] LABS: POINT-OF-CARE METER ID UU13113725
[2016-06-02 03:02] VITALS: BP 138/65
[2016-06-02 05:49] LABS: POINT-OF-CARE METER ID UU13113725
[2016-06-02 06:10] LABS: HEMATOCRIT 32.5 % (36.0-46.0); MCH 27.6 PG (29.0-34.0); MCHC 31.1 G/DL (30.0-36.0); MCV 88.8 FL (83-99); PLATELET COUNT 167 K/uL (156-360); RBC DIS.WIDTH-CV 16.8 % (11.8-14.6); RBC DIS.WIDTH-SD 54.2 % (39-53); RED BLOOD COUNT 3.66 M/uL (3.80-5.20)
[2016-06-02 06:11] LABS: WHITE BLOOD COUNT 7.6 K/uL (4.1-10.2)
[2016-06-02 06:21] LABS: ANION GAP 12 MEQ/L (2-14); CHLORIDE 103 MEQ/L (99-109); GFR ESTIMATE (CALCULATED) 14 mL/min/; GLUCOSE 352 mg/dL (70-99); POTASSIUM 4.6 MEQ/L (3.7-5.4); SAMPLE HEMOLYSIS CHECK 0; SAMPLE ICTERIC CHECK 0; SAMPLE LIPEMIA CHECK 0; SODIUM 142 MEQ/L (136-147); UREA NITROGEN (BUN) 66 mg/dL (9-23)
[2016-06-02 08:00] VITALS: BP 142/67
[2016-06-02 16:46] VITALS: BP 143/84
[2016-06-02 19:21] VITALS: BP 132/65
[2016-06-02 22:52] VITALS: BP 134/62
[2016-06-03 03:45] VITALS: BP 132/64
[2016-06-03 06:47] LABS: HEMATOCRIT 30.2 % (36.0-46.0); MCH 27.4 PG (29.0-34.0); MCHC 31.1 G/DL (30.0-36.0); MEAN PLAT.VOLUME 10.7 uM^3 (9.5-12.4); PLATELET COUNT 149 K/uL (156-360); RBC DIS.WIDTH-SD 54.5 % (39-53); RED BLOOD COUNT 3.43 M/uL (3.80-5.20); WHITE BLOOD COUNT 6.2 K/uL (4.1-10.2)
[2016-06-03 07:11] LABS: ANION GAP 13 MEQ/L (2-14); CHLORIDE 105 MEQ/L (99-109); GFR ESTIMATE (CALCULATED) 12 mL/min/; POTASSIUM 4.5 MEQ/L (3.7-5.4); SAMPLE HEMOLYSIS CHECK 0; SAMPLE ICTERIC CHECK 0; SAMPLE LIPEMIA CHECK 0; SODIUM 144 MEQ/L (136-147); UREA NITROGEN (BUN) 78 mg/dL (9-23)
[2016-06-03 07:16] LABS: GLUCOSE 145 mg/dL (70-99)
[2016-06-03 07:55] VITALS: BP 120/53
[2016-06-03 16:00] VITALS: BP 149/65
[2016-06-03 16:21] LABS: POINT-OF-CARE METER ID UU13113725
[2016-06-03 19:22] LABS: POINT-OF-CARE METER ID UU13113725
[2016-06-03 20:44] LABS: POINT-OF-CARE METER ID UU13113725
[2016-06-03 22:45] VITALS: BP 162/60
[2016-06-04 05:37] LABS: POINT-OF-CARE METER ID UU13113725
[2016-06-04 06:45] LABS: HEMATOCRIT 32.2 % (36.0-46.0); MCH 27.2 PG (29.0-34.0); MCHC 30.1 G/DL (30.0-36.0); MCV 90.2 FL (83-99); MEAN PLAT.VOLUME 10.8 uM^3 (9.5-12.4); NRBC (%) 0.3 /100 WBC (0-0); PLATELET COUNT 148 K/uL (156-360); RBC DIS.WIDTH-CV 17.4 % (11.8-14.6); RBC DIS.WIDTH-SD 58.2 % (39-53); RED BLOOD COUNT 3.57 M/uL (3.80-5.20); WHITE BLOOD COUNT 5.2 K/uL (4.1-10.2)
[2016-06-04 07:16] LABS: EOSINOPHIL (%) 3.4 % (0-5); EOSINOPHIL COUNT 0.2 K/uL (0-0.3); IMMATURE GRANULOCYTE (%) 1.5 % (0.0-0.7); IMMATURE GRANULOCYTE COUNT 0.1 K/uL; LYMPHOCYTE COUNT 0.5 K/uL (1.0-2.8); MONOCYTE (%) 2.5 % (3-12); MONOCYTE COUNT 0.1 K/uL (0-0.8); NEUTROPHIL (%) 82.1 % (45-76); NEUTROPHIL COUNT 4.3 K/uL (1.8-6.4)
[2016-06-04 07:20] LABS: ANION GAP 14 MEQ/L (2-14); CHLORIDE 104 MEQ/L (99-109); GFR ESTIMATE (CALCULATED) 12 mL/min/; MAGNESIUM 2.2 mg/dl (1.3-2.7); POTASSIUM 4.5 MEQ/L (3.7-5.4); SAMPLE HEMOLYSIS CHECK 0; SAMPLE ICTERIC CHECK 0; SAMPLE LIPEMIA CHECK 0; SODIUM 142 MEQ/L (136-147); UREA NITROGEN (BUN) 79 mg/dL (9-23)
[2016-06-04 07:23] LABS: GLUCOSE 297 mg/dL (70-99)
[2016-06-04 12:13] VITALS: BP 120/70
[2016-06-04 13:16] LABS: POINT-OF-CARE METER ID UU13113725
[2016-06-04 16:59] VITALS: BP 143/64
[2016-06-04 21:38] LABS: POINT-OF-CARE METER ID UU13113725
[2016-06-04 23:54] VITALS: BP 143/67
[2016-06-05 08:57] VITALS: BP 185/77
[2016-06-05 12:12] LABS: POINT-OF-CARE METER ID UU13113725
[2016-06-05 17:26] VITALS: BP 143/60
[2016-06-05 23:16] VITALS: BP 127/59
[2016-06-06 06:00] LABS: POINT-OF-CARE METER ID UU13113725
[2016-06-06 06:53] LABS: NRBC (%) 0.6 /100 WBC (0-0)
[2016-06-06 07:10] LABS: EOSINOPHIL (%) 2.2 % (0-5); EOSINOPHIL COUNT 0.2 K/uL (0-0.3); HEMATOCRIT 32.3 % (36.0-46.0); IMMATURE GRANULOCYTE (%) 3.3 % (0.0-0.7); IMMATURE GRANULOCYTE COUNT 0.3 K/uL; LYMPHOCYTE COUNT 0.9 K/uL (1.0-2.8); MEAN PLAT.VOLUME 10.5 uM^3 (9.5-12.4); MONOCYTE COUNT 0.4 K/uL (0-0.8); NEUTROPHIL (%) 80.8 % (45-76); NEUTROPHIL COUNT 7.2 K/uL (1.8-6.4); RBC DIS.WIDTH-CV 17.3 % (11.8-14.6); RBC DIS.WIDTH-SD 56.1 % (39-53); RED BLOOD COUNT 3.59 M/uL (3.80-5.20)
[2016-06-06 07:12] LABS: PLATELET COUNT 198 K/uL (156-360); WHITE BLOOD COUNT 8.9 K/uL (4.1-10.2)
[2016-06-06 07:16] LABS: ANION GAP 13 MEQ/L (2-14); CHLORIDE 100 MEQ/L (99-109); GFR ESTIMATE (CALCULATED) 12 mL/min/; GLUCOSE 184 mg/dL (70-99); POTASSIUM 4.3 MEQ/L (3.7-5.4); SAMPLE HEMOLYSIS CHECK 0; SAMPLE ICTERIC CHECK 0; SAMPLE LIPEMIA CHECK 0; SODIUM 140 MEQ/L (136-147); UREA NITROGEN (BUN) 66 mg/dL (9-23)
[2016-06-06 08:00] VITALS: BP 130/61
[2016-06-06 08:08] LABS: HEMATOLOGY COMMENT 1 SMEAR COMPATIBLE; USER ID CCL
[2016-06-06] MEDS ORDERED: LOPRESSOR25 MG PO (11:33)
[2016-06-06] MEDS ORDERED: MYCOSTATIN 100,60 ML PO (11:33)
[2016-06-06] MEDS ORDERED: GABAPENTIN300 MG PO (11:33)
[2016-06-06] MEDS ORDERED: THEOPHYLLINE400 MG PO (11:33)
[2016-06-06] MEDS ORDERED: LEVEMIR100 UNIT/2 SC ×2 (11:33)
[2016-06-06] MEDS ORDERED: BUMETANIDE1 MG PO (11:33)
[2016-06-06] MEDS ORDERED: Magic Mouthwash Garg MM (11:33)
[2016-06-06] MEDS ORDERED: METOPROLOL TART50 MG PO (11:33)
[2016-06-06] MEDS ORDERED: MILLIPRED5 MG PO (11:33)
[2016-06-06] MEDS ORDERED: MUCINEX600 MG PO (11:33)
[2016-06-06] MEDS ORDERED: Zeasorb Antifungal T TP (11:33)
[2016-06-06] MEDS ORDERED: TYLENOL REGULA325 MG PO (11:33)
[2016-06-06] MEDS ORDERED: FLORASTOR250 MG PO (11:33)
[2016-06-06] MEDS ORDERED: AMLODIPINE BESY10 MG PO (11:33)
[2016-06-06] MEDS ORDERED: GUAIFENESIN WI120 M1 PO (11:33)
[2016-06-06] MEDS ORDERED: CALCITRIOL0.25 MCG PO (11:33)
[2016-06-06 11:38] LABS: POINT-OF-CARE METER ID UU13113725
[2016-06-06 12:48] LABS: POINT-OF-CARE METER ID UU13113725
[2016-06-06 18:53] VITALS: BP 140/64
[2016-06-06 20:53] LABS: POINT-OF-CARE METER ID UU13113725
[2016-06-06 22:55] VITALS: BP 116/59
[2016-06-07 06:00] LABS: POINT-OF-CARE METER ID UU13113725
[2016-06-07 06:30] VITALS: BP 130/63
[2016-06-07 07:00] LABS: THEOPHYLLINE 10.7 MCG/ML (10-20)
[2016-06-07 08:28] VITALS: BP 118/57
[2016-06-07 11:54] LABS: POINT-OF-CARE METER ID UU13113725
[2016-06-12] MEDS ORDERED: LEVEMIR FL100 UNIT/1 SC ×2 (21:28→21:38)
[2016-06-12] MEDS ORDERED: ZEASORB-AF70 G1 TP (21:30)
[2016-06-12] MEDS ORDERED: ROCALTROL0.25 MCG PO (21:31)
[2016-06-12] MEDS ORDERED: METOPROLOL TART50 MG PO (21:32)
[2016-06-12] MEDS ORDERED: NORVASC10 MG PO (21:33)
[2016-06-12] MEDS ORDERED: BUMEX1 MG PO (21:34)
[2016-06-12] MEDS ORDERED: FLORASTOR250 MG PO (21:36)
[2016-06-19] MEDS ORDERED: DUONEB 2.5-0.5 M3 ML IPPB (13:02)
[2016-06-19] MEDS ORDERED: ARANESP40 MCG/0.4 IV (13:03)
[2016-06-19] MEDS ORDERED: CALCIUM ACETAT667 MG PO (13:03)
[2016-06-19] MEDS ORDERED: LEVAQUIN750 MG PO (13:05)
[2016-06-19] MEDS ORDERED: LEVEMIR100 UNIT/2 SC ×2 (13:08)
[2016-06-19] MEDS ORDERED: PREDNISONE10 MG PO (13:09)
== END 2016-06-07 16:49 | disposition home or self-care (01) | DRG 871 ==
LOC: EME → EDBD 22:59 → 4WEST 05-12 02:33 → EDOF 05-12 02:33 → 4EAST 05-12 02:33 → 5EAST 05-12 02:33 → 4WEST 05-12 03:39 → 4EAST 05-15 17:17 → 5EAST 05-19 22:54
PROVIDERS: Emergency Medicine; Hospitalist; Internal Medicine; Internal Medicine Cardiovascular Disease; Internal Medicine Critical Care Medicine; Internal Medicine Nephrology
PROC: 02HV33Z Insertion of Infusion Device into Superior Vena Cava, Percutaneous Approach (ICD-10-PCS; principal; 2016-06-03)
DX: A41.9 Sepsis, unspecified organism (principal); J18.9 Pneumonia, unspecified organism; J96.20 Acute and chronic respiratory failure, unspecified whether with hypoxia or hypercapnia; J44.1 Chronic obstructive pulmonary disease with (acute) exacerbation; N18.4 Chronic kidney disease, stage 4 (severe); N17.9 Acute kidney failure, unspecified; N25.81 Secondary hyperparathyroidism of renal origin; I48.3 Typical atrial flutter; E87.2 Acidosis; J44.0 Chronic obstructive pulmonary disease with (acute) lower respiratory infection; I50.42 Chronic combined systolic (congestive) and diastolic (congestive) heart failure; I25.10 Atherosclerotic heart disease of native coronary artery without angina pectoris; D64.9 Anemia, unspecified; E03.9 Hypothyroidism, unspecified; G47.33 Obstructive sleep apnea (adult) (pediatric); I12.9 Hypertensive chronic kidney disease with stage 1 through stage 4 chronic kidney disease, or unspecified chronic kidney disease; R00.0 Tachycardia, unspecified; E87.6 Hypokalemia; E55.9 Vitamin D deficiency, unspecified; T49.0X5A Adverse effect of local antifungal, anti-infective and anti-inflammatory drugs, initial encounter; K21.9 Gastro-esophageal reflux disease without esophagitis; E11.649 Type 2 diabetes mellitus with hypoglycemia without coma; E11.22 Type 2 diabetes mellitus with diabetic chronic kidney disease; Z95.5 Presence of coronary angioplasty implant and graft; Z87.891 Personal history of nicotine dependence; Z92.21 Personal history of antineoplastic chemotherapy; Z85.118 Personal history of other malignant neoplasm of bronchus and lung; Z79.4 Long term (current) use of insulin
CPT/HCPCS: 36600; 71010; 71020; 71250; 74230; 76770; 80048; 80048 91; 80069; 80198; 80202; 81003; 81050; 82306; 82330; 82436; 82550; 82570; 82803; 82948; 83540; 83605; 83735; 83880; 83970; 84145 90; 84156; 84300; 84466; 84484; 84550; 85025; 85027; 85610; 85730; 86704; 86706; 86803; 87040; 87070; 87077; 87181; 87185; 87205; 87340; 87449; 87493; 87502; 87641; 87801; 89190; 92526 GN; 92611 GN; 93005; 93306; 94002; 94010; 94640; 94640 76; 94660; 94667; 94668; 94760; 94799; 97530 GP; 99202; 99281; 99285; C1750; C1752; J0360; J0690; J0692; J0696; J0881; J1644; J1756; J1815; J1940; J2250; J2543; J2920; J2930; J3010; J3370; J3475; J7030; J7040; J7050; J7120; J7512; P9045

== ENCOUNTER 2016-08-31 09:34 | Day surgery (SDC) | payer OTHER ==
[~2016-08-31] VITALS: Ht 157.5 cm; Wt 96.2 kg
[~2016-08-31 09:34] MED LIST changes: +APRESOLINE50 MG PO; +ARANESP40 MCG/0.4 IV; +BUMETANIDE1 MG PO; +BUMEX1 MG PO; +CALCITRIOL0.25 MCG PO; +CALCIUM ACETAT667 MG PO; +CELEXA20 MG PO; +CHLORTHALIDONE25 MG PO; +DUONEB 2.5-0.5 M3 ML IPPB; +FLORASTOR250 MG PO; +GABAPENTIN300 MG PO; +GRALISE300 MG PO; +GUAIFENESIN WI120 M1 PO; +HYDROCODON-ACE1 EAC7 PO; +LANSOPRAZOLE30 MG PO; +LEVAQUIN750 MG PO; +LEVEMIR FL100 UNIT/1 SC; +METOPROLOL TART50 MG PO; +MICARDIS80 MG PO; +MILLIPRED5 MG PO; +MUCINEX600 MG PO; +MYCOSTATIN 100,60 ML PO; +Magic Mouthwash Garg MM; +NORVASC10 MG PO; +PERCOCET 5/31 TABLET PO; +PREDNISONE10 MG PO; +PROVENTIL,2.5 MG/3 M IH; +REQUIP1 MG PO; +ROCALTROL0.25 MCG PO; +THEOPHYLLINE400 MG PO; +THEOPHYLLINE600 MG PO; +TRESIBA FL200 UNIT/1 SC; +TYLENOL REGULA325 MG PO; +VITAMIN D31000 UNIT PO; +ZEASORB-AF70 G1 TP; +Zeasorb Antifungal T TP
[2016-08-31] MEDS ORDERED: METOPROLOL TART25 MG PO (10:53)
[2016-08-31] MEDS ORDERED: LEVEMIR FL100 UNIT/1 SC ×2 (11:01→11:02)
[2016-08-31] MEDS ORDERED: LOPRESSOR50 MG PO (11:07)
[2016-08-31 11:20] LABS: POINT-OF-CARE METER ID UU14174212
[2016-08-31 11:24] LABS: HEMATOCRIT 32.3 % (36.0-46.0); MCH 26.6 PG (29.0-34.0); MCV 88.7 FL (83-99); MEAN PLAT.VOLUME 9.6 uM^3 (9.5-12.4); PLATELET COUNT 317 K/uL (156-360); RBC DIS.WIDTH-CV 14.6 % (11.8-14.6); RBC DIS.WIDTH-SD 46.8 % (39-53); RED BLOOD COUNT 3.64 M/uL (3.80-5.20); WHITE BLOOD COUNT 7.3 K/uL (4.1-10.2)
[2016-08-31 11:38] VITALS: BP 147/86
[2016-08-31 11:58] LABS: ANION GAP 8 MEQ/L (2-14); CHLORIDE 101 MEQ/L (99-109); POTASSIUM 4.2 MEQ/L (3.7-5.4); SAMPLE HEMOLYSIS CHECK 0; SAMPLE ICTERIC CHECK 0; SAMPLE LIPEMIA CHECK 0; SODIUM 142 MEQ/L (136-147)
[2016-08-31 12:03] LABS: GFR ESTIMATE (CALCULATED) 19 mL/min/; GLUCOSE 165 mg/dL (70-99); UREA NITROGEN (BUN) 20 mg/dL (9-23)
[2016-08-31 12:10] LABS: METH RESISTANT S AUREUS PCR NEGATIVE (NEGATIVE); PROBE CHECK PASS; SPECIMEN PROCESSING CONTROL PASS
[2016-08-31 14:53] LABS: POINT-OF-CARE METER ID UU13113675; POINT-OF-CARE USER ID 515036437
[2016-08-31 15:20] VITALS: BP 144/62
[2016-08-31 16:00] VITALS: BP 140/80
== END 2016-08-31 16:30 | disposition home or self-care (01) ==
LOC: SDC 09:34
PROVIDERS: Surgery
DX: I12.0 Hypertensive chronic kidney disease with stage 5 chronic kidney disease or end stage renal disease (principal); E11.22 Type 2 diabetes mellitus with diabetic chronic kidney disease; N18.6 End stage renal disease; Z99.2 Dependence on renal dialysis; J44.9 Chronic obstructive pulmonary disease, unspecified; Z99.81 Dependence on supplemental oxygen; Z87.891 Personal history of nicotine dependence; E78.5 Hyperlipidemia, unspecified; M19.90 Unspecified osteoarthritis, unspecified site; Z85.118 Personal history of other malignant neoplasm of bronchus and lung; Z92.21 Personal history of antineoplastic chemotherapy; Z92.3 Personal history of irradiation; Z98.61 Coronary angioplasty status; Z79.4 Long term (current) use of insulin; Z88.1 Allergy status to other antibiotic agents; Z88.8 Allergy status to other drugs, medicaments and biological substances; Z88.5 Allergy status to narcotic agent; Z82.3 Family history of stroke; Z82.49 Family history of ischemic heart disease and other diseases of the circulatory system; Z83.3 Family history of diabetes mellitus
CPT/HCPCS: 71020; 80048; 82948; 85027; 87641; 94640; J0690; J1644; J2720

== ENCOUNTER → 2016-10-26 | Outpatient (CLI) | payer OTHER ==
[~2016-10-26] MED LIST changes: +LOPRESSOR50 MG PO; +METOPROLOL TART25 MG PO
== END | disposition home or self-care (01) ==
LOC: AMB 08:06
PROC: 02PYX3Z Removal of Infusion Device from Great Vessel, External Approach (ICD-10-PCS; principal; 2016-10-26)
DX: Z45.2 Encounter for adjustment and management of vascular access device (principal); N18.6 End stage renal disease; Z99.2 Dependence on renal dialysis

== ENCOUNTER 2016-11-28 20:15 | Inpatient (IN) | payer OTHER ==
[~2016-11-28] VITALS: Ht 157.5 cm; Wt 99.3 kg
[2016-11-28 21:07] LABS: HEMATOCRIT 33.6 % (36.0-46.0); MCH 28.8 PG (29.0-34.0); MCHC 31.3 G/DL (30.0-36.0); MCV 92.1 FL (83-99); MEAN PLAT.VOLUME 10.3 uM^3 (9.5-12.4); RBC DIS.WIDTH-CV 16.3 % (11.8-14.6); RBC DIS.WIDTH-SD 55.3 % (39-53); RED BLOOD COUNT 3.65 M/uL (3.80-5.20); WHITE BLOOD COUNT 7.6 K/uL (4.1-10.2)
[2016-11-28 21:15] LABS: PLATELET COUNT 171 K/uL (156-360)
[2016-11-28 21:23] LABS: CHLORIDE 102 mEq/L (99-109); POTASSIUM 4.3 mEq/L (3.7-5.4)
[2016-11-28 21:26] LABS: ANION GAP 8 MEQ/L (2-14)
[2016-11-28 21:29] LABS: GFR ESTIMATE (CALCULATED) 31 mL/min/
[2016-11-28 21:30] LABS: UREA NITROGEN (BUN) 13 mg/dL (9-23)
[2016-11-28 21:37] LABS: TROP-I INTERPRETATION NEGATIVE; TROPONIN-I 0.04 ng/mL (0.0-0.30)
[2016-11-28 22:04] LABS: GLUCOSE 345 mg/dL (70-99); SODIUM 135 mEq/L (136-147)
[2016-11-28] MEDS ORDERED: GABAPENTIN300 MG PO (22:51)
[2016-11-28] MEDS ORDERED: THEOPHYLLINE400 MG PO (22:52)
[2016-11-28] MEDS ORDERED: NYATA15 GM TP (22:53)
[2016-11-28 23:05] LABS: MAGNESIUM 1.7 mg/dL (1.3-2.7)
[2016-11-28 23:06] LABS: EOSINOPHIL (%) 1.8 % (0-5); EOSINOPHIL COUNT 0.1 K/uL (0-0.3); IMMATURE GRANULOCYTE (%) 0.7 % (0.0-0.7); IMMATURE GRANULOCYTE COUNT 0.1 K/uL; INSTRUMENT ABS NEUTROPHIL CT 6.5 K/uL; LYMPHOCYTE COUNT 0.3 K/uL (1.0-2.8); MONOCYTE (%) 5.8 % (3-12); MONOCYTE COUNT 0.4 K/uL (0-0.8); NEUTROPHIL (%) 87.3 % (45-76); NEUTROPHIL COUNT 6.5 K/uL (1.8-6.4)
[2016-11-28 23:13] LABS: POINT-OF-CARE METER ID UU14100415
[2016-11-29 00:04] LABS: POINT-OF-CARE METER ID UU14100415
[2016-11-29 00:37] LABS: INTER. NORMALIZED RATIO 1.1; PROTHROMBIN TIME 12.4 SEC (10.2-12.9)
[2016-11-29 00:40] LABS: PTT 29.3 SEC (25-37)
[2016-11-29 01:14] LABS: INFLUENZA A VIRAL ANTIGEN NEGATIVE; INFLUENZA B VIRAL ANTIGEN NEGATIVE
[2016-11-29 04:20] LABS: TROP-I INTERPRETATION NEGATIVE; TROPONIN-I 0.14 ng/mL (0.0-0.30)
[2016-11-29 07:49] LABS: POINT-OF-CARE METER ID UU14100415
[2016-11-29 08:57] LABS: INTER. NORMALIZED RATIO 1.1; PROTHROMBIN TIME 12.6 SEC (10.2-12.9)
[2016-11-29 09:05] LABS: PTT 100.5 SEC (25-37)
[2016-11-29 09:22] LABS: INTERNAL CONTROL VALID? YES
[2016-11-29 13:07] LABS: POINT-OF-CARE METER ID UU14100415
[2016-11-29 13:19] LABS: EOSINOPHIL (%) 3.3 % (0-5); EOSINOPHIL COUNT 0.3 K/uL (0-0.3); HEMATOCRIT 33.4 % (36.0-46.0); IMMATURE GRANULOCYTE (%) 0.4 % (0.0-0.7); INSTRUMENT ABS NEUTROPHIL CT 6.3 K/uL; LYMPHOCYTE COUNT 0.5 K/uL (1.0-2.8); MCH 28.5 PG (29.0-34.0); MCHC 30.2 G/DL (30.0-36.0); MCV 94.1 FL (83-99); MEAN PLAT.VOLUME 9.7 uM^3 (9.5-12.4); MONOCYTE (%) 6.3 % (3-12); MONOCYTE COUNT 0.5 K/uL (0-0.8); NEUTROPHIL (%) 82.9 % (45-76); NEUTROPHIL COUNT 6.3 K/uL (1.8-6.4); RBC DIS.WIDTH-CV 16.5 % (11.8-14.6); RBC DIS.WIDTH-SD 56.7 % (39-53); RED BLOOD COUNT 3.55 M/uL (3.80-5.20); WHITE BLOOD COUNT 7.6 K/uL (4.1-10.2)
[2016-11-29 13:24] LABS: PLATELET COUNT 250 K/uL (156-360)
[2016-11-29 13:42] LABS: TROP-I INTERPRETATION NEGATIVE; TROPONIN-I 0.14 ng/mL (0.0-0.30)
[2016-11-29 17:12] LABS: POINT-OF-CARE METER ID UU14100415
[2016-11-29 17:40] LABS: INTER. NORMALIZED RATIO 1.1
[2016-11-29 17:54] LABS: PTT 54.7 SEC (25-37)
[2016-11-29 20:00] VITALS: BP 142/76
[2016-11-29 21:41] LABS: POINT-OF-CARE METER ID UU13113698
[2016-11-30 00:05] VITALS: BP 139/69
[2016-11-30 01:06] LABS: INTER. NORMALIZED RATIO 1.1; PROTHROMBIN TIME 11.7 SEC (10.2-12.9)
[2016-11-30 01:09] LABS: PTT 58.1 SEC (25-37)
[2016-11-30 04:10] VITALS: BP 127/59
[2016-11-30 06:06] LABS: HEMATOCRIT 33.9 % (36.0-46.0); MCH 28.6 PG (29.0-34.0); MCV 92.4 FL (83-99); MEAN PLAT.VOLUME 10.2 uM^3 (9.5-12.4); PLATELET COUNT 273 K/uL (156-360); RBC DIS.WIDTH-SD 54.5 % (39-53); RED BLOOD COUNT 3.67 M/uL (3.80-5.20); WHITE BLOOD COUNT 8.9 K/uL (4.1-10.2)
[2016-11-30 06:31] LABS: ANION GAP 10 MEQ/L (2-14); CHLORIDE 100 MEQ/L (99-109); GLUCOSE 289 mg/dL (70-99); SAMPLE HEMOLYSIS CHECK 0; SAMPLE ICTERIC CHECK 0; SAMPLE LIPEMIA CHECK 0; SODIUM 137 MEQ/L (136-147)
[2016-11-30 06:37] LABS: GFR ESTIMATE (CALCULATED) 21 mL/min/; POTASSIUM 5.2 MEQ/L (3.7-5.4); UREA NITROGEN (BUN) 24 mg/dL (9-23)
[2016-11-30 06:42] LABS: TROP-I INTERPRETATION NEGATIVE; TROPONIN-I 0.07 ng/mL (0.0-0.30)
[2016-11-30 07:57] LABS: POINT-OF-CARE METER ID UU13113698; POINT-OF-CARE USER ID ENVKC36
[2016-11-30 08:00] VITALS: BP 107/55
[2016-11-30 11:58] LABS: HBSG INDEX 0.28
[2016-11-30 13:00] VITALS: BP 110/68
[2016-11-30 16:52] LABS: POINT-OF-CARE USER ID ENVKC36
[2016-11-30 17:50] VITALS: BP 122/58
[2016-12-01] VITALS (7 sets, daily range): BP systolic 102–156; BP diastolic 53–74
[2016-12-01 07:45] LABS: POINT-OF-CARE METER ID UU13113781
[2016-12-01 12:09] LABS: POINT-OF-CARE METER ID UU13113781
[2016-12-01 16:25] LABS: POINT-OF-CARE METER ID UU13113781
[2016-12-02 04:05] VITALS: BP 122/59
[2016-12-02 06:01] LABS: HEMATOCRIT 32.3 % (36.0-46.0); MCHC 31.9 G/DL (30.0-36.0); MEAN PLAT.VOLUME 10.1 uM^3 (9.5-12.4); PLATELET COUNT 272 K/uL (156-360); RBC DIS.WIDTH-SD 54.6 % (39-53); RED BLOOD COUNT 3.55 M/uL (3.80-5.20); WHITE BLOOD COUNT 19.8 K/uL (4.1-10.2)
[2016-12-02 06:30] LABS: ANION GAP 12 MEQ/L (2-14); CHLORIDE 92 MEQ/L (99-109); GFR ESTIMATE (CALCULATED) 14 mL/min/; GLUCOSE 363 mg/dL (70-99); SAMPLE HEMOLYSIS CHECK 2; SAMPLE ICTERIC CHECK 0; SAMPLE LIPEMIA CHECK 0; SODIUM 130 MEQ/L (136-147); UREA NITROGEN (BUN) 51 mg/dL (9-23)
[2016-12-02 07:26] LABS: POTASSIUM 4.9 MEQ/L (3.7-5.4)
[2016-12-02 08:00] VITALS: BP 143/69
[2016-12-02 11:38] VITALS: BP 139/65
[2016-12-02 16:35] VITALS: BP 160/68
[2016-12-02 19:36] VITALS: BP 113/73
[2016-12-02 23:33] LABS: POINT-OF-CARE METER ID UU13113698
[2016-12-03] VITALS (7 sets, daily range): BP systolic 109–146; BP diastolic 62–85
[2016-12-03 05:48] LABS: MCH 28.6 PG (29.0-34.0); MCHC 31.8 G/DL (30.0-36.0); MCV 90.2 FL (83-99); MEAN PLAT.VOLUME 11.1 uM^3 (9.5-12.4); NRBC (%) 0.4 /100 WBC (0-0); PLATELET COUNT 314 K/uL (156-360); RBC DIS.WIDTH-CV 16.5 % (11.8-14.6); RBC DIS.WIDTH-SD 53.6 % (39-53); RED BLOOD COUNT 3.77 M/uL (3.80-5.20); WHITE BLOOD COUNT 21.5 K/uL (4.1-10.2)
[2016-12-03 06:22] LABS: POINT-OF-CARE METER ID UU13113698
[2016-12-03 08:04] LABS: EOSINOPHIL (%) 0 % (0-5); HEMATOCRIT 32.8 % (36.0-46.0); IMMATURE GRANULOCYTE (%) 1.9 % (0.0-0.7); IMMATURE GRANULOCYTE COUNT 0.4 K/uL; INSTRUMENT ABS NEUTROPHIL CT 18.1 K/uL; LYMPHOCYTE COUNT 0.3 K/uL (1.0-2.8); MCH 29.4 PG (29.0-34.0); MCHC 32.6 G/DL (30.0-36.0); MCV 90.1 FL (83-99); MEAN PLAT.VOLUME 10.3 uM^3 (9.5-12.4); MONOCYTE (%) 3.7 % (3-12); MONOCYTE COUNT 0.7 K/uL (0-0.8); NEUTROPHIL COUNT 18.1 K/uL (1.8-6.4); NRBC (%) 0.3 /100 WBC (0-0); PLATELET COUNT 266 K/uL (156-360); RBC DIS.WIDTH-CV 16.5 % (11.8-14.6); RBC DIS.WIDTH-SD 53.4 % (39-53); RED BLOOD COUNT 3.64 M/uL (3.80-5.20); WHITE BLOOD COUNT 19.5 K/uL (4.1-10.2)
[2016-12-03 08:17] LABS: ANION GAP 15 MEQ/L (2-14); CHLORIDE 93 MEQ/L (99-109); GFR ESTIMATE (CALCULATED) 12 mL/min/; GLUCOSE 394 mg/dL (70-99); POTASSIUM 4.3 MEQ/L (3.7-5.4); SAMPLE HEMOLYSIS CHECK 0; SAMPLE ICTERIC CHECK 0; SAMPLE LIPEMIA CHECK 0; SODIUM 130 MEQ/L (136-147); UREA NITROGEN (BUN) 67 mg/dL (9-23)
[2016-12-03 12:07] LABS: POINT-OF-CARE METER ID UU13113698
[2016-12-03 17:05] LABS: POINT-OF-CARE METER ID UU13113698
[2016-12-03 21:27] LABS: POINT-OF-CARE METER ID UU14174216
[2016-12-04] VITALS (7 sets, daily range): BP systolic 120–177; BP diastolic 49–84
[2016-12-04 05:14] LABS: EOSINOPHIL (%) 0 % (0-5); HEMATOCRIT 33.3 % (36.0-46.0); IMMATURE GRANULOCYTE COUNT 0.4 K/uL; INSTRUMENT ABS NEUTROPHIL CT 17.1 K/uL; LYMPHOCYTE COUNT 0.3 K/uL (1.0-2.8); MCH 28.8 PG (29.0-34.0); MCHC 31.5 G/DL (30.0-36.0); MCV 91.2 FL (83-99); MEAN PLAT.VOLUME 10.5 uM^3 (9.5-12.4); MONOCYTE (%) 4.7 % (3-12); MONOCYTE COUNT 0.9 K/uL (0-0.8); NEUTROPHIL (%) 91.4 % (45-76); NEUTROPHIL COUNT 17.1 K/uL (1.8-6.4); NRBC (%) 0.3 /100 WBC (0-0); PLATELET COUNT 251 K/uL (156-360); RBC DIS.WIDTH-CV 16.9 % (11.8-14.6); RBC DIS.WIDTH-SD 55.8 % (39-53); RED BLOOD COUNT 3.65 M/uL (3.80-5.20); WHITE BLOOD COUNT 18.7 K/uL (4.1-10.2)
[2016-12-04 05:36] LABS: ANION GAP 14 MEQ/L (2-14); CHLORIDE 97 MEQ/L (99-109); GFR ESTIMATE (CALCULATED) 14 mL/min/; GLUCOSE 232 mg/dL (70-99); POTASSIUM 4.5 MEQ/L (3.7-5.4); SAMPLE HEMOLYSIS CHECK 0; SAMPLE ICTERIC CHECK 0; SAMPLE LIPEMIA CHECK 0; SODIUM 135 MEQ/L (136-147); UREA NITROGEN (BUN) 50 mg/dL (9-23)
[2016-12-04 07:36] LABS: POINT-OF-CARE METER ID UU13113698
[2016-12-04] MEDS ORDERED: ELIQUIS5 MG PO (10:13)
[2016-12-04 12:05] LABS: POINT-OF-CARE USER ID ENVKC36
[2016-12-04 16:30] LABS: POINT-OF-CARE METER ID UU14208750
[2016-12-04 21:37] LABS: POINT-OF-CARE METER ID UU14208750
[2016-12-05 03:36] VITALS: BP 134/62
[2016-12-05 05:48] LABS: POINT-OF-CARE METER ID UU14208750
[2016-12-05 07:00] VITALS: BP 170/82
[2016-12-05 09:10] LABS: HEMATOCRIT 33.4 % (36.0-46.0); MCH 28.9 PG (29.0-34.0); MCV 90.3 FL (83-99); MEAN PLAT.VOLUME 10.4 uM^3 (9.5-12.4); NRBC (%) 0.1 /100 WBC (0-0); PLATELET COUNT 251 K/uL (156-360); RBC DIS.WIDTH-CV 17.1 % (11.8-14.6); RBC DIS.WIDTH-SD 54.8 % (39-53); WHITE BLOOD COUNT 15.4 K/uL (4.1-10.2)
[2016-12-05 09:24] LABS: ANION GAP 12 MEQ/L (2-14); CHLORIDE 95 MEQ/L (99-109); MAGNESIUM 1.9 mg/dl (1.3-2.7); POTASSIUM 4.5 MEQ/L (3.7-5.4); SAMPLE HEMOLYSIS CHECK 0; SAMPLE ICTERIC CHECK 0; SAMPLE LIPEMIA CHECK 0; SODIUM 132 MEQ/L (136-147)
[2016-12-05 09:45] LABS: GFR ESTIMATE (CALCULATED) 13 mL/min/; GLUCOSE 258 mg/dL (70-99); UREA NITROGEN (BUN) 75 mg/dL (9-23)
[2016-12-05] MEDS ORDERED: CARVEDILOL6.25 MG PO (10:30)
[2016-12-05] MEDS ORDERED: PREDNISONE20 MG PO (10:30)
[2016-12-05] MEDS ORDERED: CEFTIN250 MG PO (10:30)
[2016-12-05] MEDS ORDERED: DILTIAZEM 24HR180 MG PO (10:30)
[2016-12-05 13:15] VITALS: BP 160/88
[2016-12-05 15:35] VITALS: BP 98/64
== END 2016-12-05 18:21 | disposition home or self-care (01) | DRG 189 ==
LOC: EME 20:15 → EDOF 22:47 → 4EAST 22:47 → ENRESERV 12-04 08:22 → 2EAST 12-04 13:41 → ENPENDDIS 12-05 → 2EAST 12-05 18:21
PROVIDERS: Emergency Medicine; Hospitalist; Internal Medicine; Internal Medicine Cardiovascular Disease; Internal Medicine Nephrology; Physician Assistant; Physician Assistant Medical
DX: J96.21 Acute and chronic respiratory failure with hypoxia (principal); J18.1 Lobar pneumonia, unspecified organism; I13.2 Hypertensive heart and chronic kidney disease with heart failure and with stage 5 chronic kidney disease, or end stage renal disease; J44.1 Chronic obstructive pulmonary disease with (acute) exacerbation; N25.81 Secondary hyperparathyroidism of renal origin; I48.0 Paroxysmal atrial fibrillation; I47.2 Ventricular tachycardia; J84.10 Pulmonary fibrosis, unspecified; N18.6 End stage renal disease; I47.1 Supraventricular tachycardia; E66.01 Morbid (severe) obesity due to excess calories; I50.32 Chronic diastolic (congestive) heart failure; I24.8 Other forms of acute ischemic heart disease; J44.0 Chronic obstructive pulmonary disease with (acute) lower respiratory infection; I48.92 Unspecified atrial flutter; E11.65 Type 2 diabetes mellitus with hyperglycemia; E11.22 Type 2 diabetes mellitus with diabetic chronic kidney disease; E55.9 Vitamin D deficiency, unspecified; G47.33 Obstructive sleep apnea (adult) (pediatric); I25.118 Atherosclerotic heart disease of native coronary artery with other forms of angina pectoris; D63.1 Anemia in chronic kidney disease; D72.829 Elevated white blood cell count, unspecified; J20.9 Acute bronchitis, unspecified; E78.5 Hyperlipidemia, unspecified; E03.9 Hypothyroidism, unspecified; R05 Cough; Z96.643 Presence of artificial hip joint, bilateral; I35.0 Nonrheumatic aortic (valve) stenosis; K21.9 Gastro-esophageal reflux disease without esophagitis; C34.91 Malignant neoplasm of unspecified part of right bronchus or lung; Z99.2 Dependence on renal dialysis; Z90.2 Acquired absence of lung [part of]; Z79.4 Long term (current) use of insulin; Z99.81 Dependence on supplemental oxygen; Z92.21 Personal history of antineoplastic chemotherapy; Z92.3 Personal history of irradiation; Z87.891 Personal history of nicotine dependence; Z68.38 Body mass index [BMI] 38.0-38.9, adult; Z95.5 Presence of coronary angioplasty implant and graft
CPT/HCPCS: 36415; 71010; 71250; 78582; 80048; 80053; 80069; 82306; 82948; 83605; 83735; 83880; 84100; 84484; 84999; 85025; 85027; 85610; 85730; 87040; 87070; 87205; 87340; 87449; 87502; 93005; 93971; 94640; 94640 76; 94660; 94799; 99202; 99281; 99285; A9540; A9567; J0692; J0696; J0881; J1815; J2405; J2920; J2930; J7050; J7512

== ENCOUNTER 2016-12-11 14:00 | Inpatient (IN) | payer OTHER ==
[~2016-12-11] VITALS: Ht 157.5 cm; Wt 100.0 kg
[~2016-12-11 14:00] MED LIST changes: +CARVEDILOL6.25 MG PO; +CEFTIN250 MG PO; +DILTIAZEM 24HR180 MG PO; +ELIQUIS5 MG PO; +NYATA15 GM TP; +PREDNISONE20 MG PO
[2016-12-11 17:49] LABS: HEMATOCRIT 32.6 % (36.0-46.0); MCH 29.4 PG (29.0-34.0); MCHC 31.3 G/DL (30.0-36.0); MCV 93.9 FL (83-99); RBC DIS.WIDTH-CV 17.4 % (11.8-14.6); RBC DIS.WIDTH-SD 60.4 % (39-53); RED BLOOD COUNT 3.47 M/uL (3.80-5.20); WHITE BLOOD COUNT 12.8 K/uL (4.1-10.2)
[2016-12-11 17:55] LABS: CHLORIDE 101 mEq/L (99-109); SODIUM 138 mEq/L (136-147)
[2016-12-11 17:57] LABS: GLUCOSE 283 mg/dL (70-99)
[2016-12-11 17:58] LABS: ANION GAP 10 MEQ/L (2-14); POTASSIUM 5.9 mEq/L (3.7-5.4)
[2016-12-11 18:01] LABS: GFR ESTIMATE (CALCULATED) 14 mL/min/
[2016-12-11 18:02] LABS: UREA NITROGEN (BUN) 67 mg/dL (9-23)
[2016-12-11 18:27] LABS: HEMATOLOGY COMMENT 1 SN; MEAN PLAT.VOLUME 11.4 uM^3 (9.5-12.4); PLAT.SUFFICIENCY DECREASED; PLATELET COUNT 137 K/uL (156-360)
[2016-12-11 18:28] LABS: TROP-I INTERPRETATION POSITIVE; TROPONIN-I 0.69 ng/mL (0.0-0.30)
[2016-12-12 02:46] LABS: TROP-I INTERPRETATION INDETERMINATE; TROPONIN-I 0.49 ng/mL (0.0-0.30)
[2016-12-12 03:51] VITALS: BP 158/97
[2016-12-12 09:00] VITALS: BP 147/65
[2016-12-12 09:00] LABS: HEMATOCRIT 33.2 % (36.0-46.0); MCH 29.4 PG (29.0-34.0); MCHC 31.6 G/DL (30.0-36.0); MEAN PLAT.VOLUME 11.4 uM^3 (9.5-12.4); PLATELET COUNT 148 K/uL (156-360); RBC DIS.WIDTH-SD 58.1 % (39-53); RED BLOOD COUNT 3.57 M/uL (3.80-5.20); WHITE BLOOD COUNT 16.1 K/uL (4.1-10.2)
[2016-12-12 09:07] LABS: TROP-I INTERPRETATION INDETERMINATE; TROPONIN-I 0.53 ng/mL (0.0-0.30)
[2016-12-12 09:42] LABS: ANION GAP 12 MEQ/L (2-14); CHLORIDE 97 MEQ/L (99-109); GFR ESTIMATE (CALCULATED) 13 mL/min/; GLUCOSE 439 mg/dL (70-99); SAMPLE HEMOLYSIS CHECK 0; SAMPLE ICTERIC CHECK 0; SAMPLE LIPEMIA CHECK 0; SODIUM 134 MEQ/L (136-147); UREA NITROGEN (BUN) 70 mg/dL (9-23)
[2016-12-12 11:05] VITALS: BP 136/62
[2016-12-12 19:28] VITALS: BP 114/56
[2016-12-13] VITALS (8 sets, daily range): BP systolic 88–134; BP diastolic 51–99
[2016-12-13 06:08] LABS: HEMATOCRIT 31.8 % (36.0-46.0); MCH 29.3 PG (29.0-34.0); MCHC 31.4 G/DL (30.0-36.0); MCV 93.3 FL (83-99); MEAN PLAT.VOLUME 11.2 uM^3 (9.5-12.4); PLATELET COUNT 151 K/uL (156-360); RBC DIS.WIDTH-CV 17.1 % (11.8-14.6); RBC DIS.WIDTH-SD 58.6 % (39-53); RED BLOOD COUNT 3.41 M/uL (3.80-5.20); WHITE BLOOD COUNT 26.8 K/uL (4.1-10.2)
[2016-12-13 06:38] LABS: ANION GAP 12 MEQ/L (2-14); CHLORIDE 96 MEQ/L (99-109); GFR ESTIMATE (CALCULATED) 17 mL/min/; GLUCOSE 160 mg/dL (70-99); POTASSIUM 5.1 MEQ/L (3.7-5.4); SAMPLE HEMOLYSIS CHECK 0; SAMPLE ICTERIC CHECK 0; SAMPLE LIPEMIA CHECK 0; SODIUM 135 MEQ/L (136-147); UREA NITROGEN (BUN) 52 mg/dL (9-23)
[2016-12-13 07:40] LABS: POINT-OF-CARE METER ID UU13113698
[2016-12-13 11:52] LABS: POINT-OF-CARE METER ID UU13113781
[2016-12-13 21:36] LABS: POINT-OF-CARE METER ID UU13113698
[2016-12-14 03:59] VITALS: BP 117/56
[2016-12-14 05:30] LABS: HEMATOCRIT 29.5 % (36.0-46.0); MCH 29.3 PG (29.0-34.0); MCHC 31.5 G/DL (30.0-36.0); MCV 93.1 FL (83-99); MEAN PLAT.VOLUME 12.2 uM^3 (9.5-12.4); PLATELET COUNT 136 K/uL (156-360); RBC DIS.WIDTH-CV 17.2 % (11.8-14.6); RBC DIS.WIDTH-SD 58.6 % (39-53); RED BLOOD COUNT 3.17 M/uL (3.80-5.20); WHITE BLOOD COUNT 24.7 K/uL (4.1-10.2)
[2016-12-14 05:59] LABS: ANION GAP 15 MEQ/L (2-14); CHLORIDE 93 MEQ/L (99-109); GFR ESTIMATE (CALCULATED) 12 mL/min/; POTASSIUM 5.7 MEQ/L (3.7-5.4); SAMPLE HEMOLYSIS CHECK 0; SAMPLE ICTERIC CHECK 0; SAMPLE LIPEMIA CHECK 0; SODIUM 131 MEQ/L (136-147); UREA NITROGEN (BUN) 76 mg/dL (9-23)
[2016-12-14 06:06] LABS: GLUCOSE 251 mg/dL (70-99)
[2016-12-14 07:15] VITALS: BP 124/59
[2016-12-14 07:35] LABS: POINT-OF-CARE METER ID UU13113781
[2016-12-14 09:32] LABS: TROP-I INTERPRETATION INDETERMINATE; TROPONIN-I 0.41 ng/mL (0.0-0.30)
[2016-12-14 15:38] VITALS: BP 107/54
[2016-12-14 15:40] LABS: POINT-OF-CARE METER ID UU13113803
[2016-12-14 18:45] VITALS: BP 110/50
[2016-12-14 19:43] VITALS: BP 107/52
[2016-12-14 23:17] VITALS: BP 103/54
[2016-12-15 03:52] VITALS: BP 116/57
[2016-12-15 06:59] LABS: TROP-I INTERPRETATION INDETERMINATE
[2016-12-15 07:09] VITALS: BP 99/56
[2016-12-15 07:50] LABS: POINT-OF-CARE METER ID UU13113698
[2016-12-15 10:06] LABS: EOSINOPHIL (%) 0 % (0-5); IMMATURE GRANULOCYTE (%) 1.3 % (0.0-0.7); IMMATURE GRANULOCYTE COUNT 0.4 K/uL; INSTRUMENT ABS NEUTROPHIL CT 28.8 K/uL; LYMPHOCYTE COUNT 0.5 K/uL (1.0-2.8); MONOCYTE (%) 3.5 % (3-12); MONOCYTE COUNT 1.1 K/uL (0-0.8); NEUTROPHIL (%) 93.6 % (45-76); NEUTROPHIL COUNT 28.8 K/uL (1.8-6.4); PLATELET COUNT 173 K/uL (156-360)
[2016-12-15 10:20] LABS: HEMATOCRIT 33.2 % (36.0-46.0); MCH 30.3 PG (29.0-34.0); MCHC 31.9 G/DL (30.0-36.0); MCV 94.9 FL (83-99); RBC DIS.WIDTH-CV 17.7 % (11.8-14.6); RBC DIS.WIDTH-SD 61.6 % (39-53)
[2016-12-15 10:21] LABS: WHITE BLOOD COUNT 30.8 K/uL (4.1-10.2)
[2016-12-15 11:14] LABS: ANION GAP 14 MEQ/L (2-14); CHLORIDE 95 MEQ/L (99-109); GFR ESTIMATE (CALCULATED) 11 mL/min/; GLUCOSE 232 mg/dL (70-99); SAMPLE HEMOLYSIS CHECK 0; SAMPLE ICTERIC CHECK 0; SAMPLE LIPEMIA CHECK 0; SODIUM 132 MEQ/L (136-147); UREA NITROGEN (BUN) 65 mg/dL (9-23)
[2016-12-15 11:21] VITALS: BP 118/57
[2016-12-15 11:43] LABS: POINT-OF-CARE METER ID UU13113781
[2016-12-15 12:15] VITALS: BP 153/63
[2016-12-15 12:56] LABS: BASE EXCESS -5.3 mEq/L (-3 to +3); CARBOXY HGB 2.1 % (0-5); METHEMOGLOBIN 1.9 % (0-1.5); PCO2 37 mm Hg (35-45); PO2 53 mm Hg (80-100); pH 7.34 (7.35-7.45)
[2016-12-15 12:57] LABS: COMMENTS - BLOOD GASES A+C+; DEVICE HF; O2 FLOW 12 L/MIN; SITE RR; TOTAL RESP RATE 21 resp/min
[2016-12-15 14:49] LABS: TROP-I INTERPRETATION POSITIVE
[2016-12-15 19:34] LABS: TROP-I INTERPRETATION POSITIVE; TROPONIN-I 1.55 ng/mL (0.0-0.30)
[2016-12-17 11:57] LABS: POINT-OF-CARE METER ID UU13113781
== END 2016-12-15 20:24 | DRG 189 ==
LOC: EME 14:00 → 4EAST 12-12 01:08 → EDOF 12-12 01:08 → ENRESERV 12-12 01:13 → 4EAST 12-12 03:34
PROVIDERS: Emergency Medicine; Hospitalist; Internal Medicine; Internal Medicine Cardiovascular Disease; Physician Assistant
PROC: 5A1D60Z (ICD-10-PCS; principal; 2016-12-12)
DX: J96.21 Acute and chronic respiratory failure with hypoxia (principal); I21.4 Non-ST elevation (NSTEMI) myocardial infarction; I13.2 Hypertensive heart and chronic kidney disease with heart failure and with stage 5 chronic kidney disease, or end stage renal disease; N25.81 Secondary hyperparathyroidism of renal origin; I95.9 Hypotension, unspecified; N18.6 End stage renal disease; J44.0 Chronic obstructive pulmonary disease with (acute) lower respiratory infection; I50.32 Chronic diastolic (congestive) heart failure; C34.90 Malignant neoplasm of unspecified part of unspecified bronchus or lung; E11.22 Type 2 diabetes mellitus with diabetic chronic kidney disease; I48.0 Paroxysmal atrial fibrillation; C50.911 Malignant neoplasm of unspecified site of right female breast; D63.1 Anemia in chronic kidney disease; E03.9 Hypothyroidism, unspecified; E11.65 Type 2 diabetes mellitus with hyperglycemia; E66.9 Obesity, unspecified; E78.5 Hyperlipidemia, unspecified; E87.1 Hypo-osmolality and hyponatremia; E87.5 Hyperkalemia; G47.33 Obstructive sleep apnea (adult) (pediatric); I25.10 Atherosclerotic heart disease of native coronary artery without angina pectoris; I35.0 Nonrheumatic aortic (valve) stenosis; I46.9 Cardiac arrest, cause unspecified; I49.3 Ventricular premature depolarization; J20.9 Acute bronchitis, unspecified; J44.1 Chronic obstructive pulmonary disease with (acute) exacerbation; K21.9 Gastro-esophageal reflux disease without esophagitis; T38.0X5A Adverse effect of glucocorticoids and synthetic analogues, initial encounter; Y71.2 Prosthetic and other implants, materials and accessory cardiovascular devices associated with adverse incidents; T82.510A Breakdown (mechanical) of surgically created arteriovenous fistula, initial encounter; Z66 Do not resuscitate; Z87.891 Personal history of nicotine dependence; Z79.01 Long term (current) use of anticoagulants; Z79.4 Long term (current) use of insulin; Z79.82 Long term (current) use of aspirin; Z79.899 Other long term (current) drug therapy; Z80.0 Family history of malignant neoplasm of digestive organs; Z90.2 Acquired absence of lung [part of]; Z92.21 Personal history of antineoplastic chemotherapy; Z92.3 Personal history of irradiation; Z95.5 Presence of coronary angioplasty implant and graft; Z96.643 Presence of artificial hip joint, bilateral; Z99.2 Dependence on renal dialysis; Z99.81 Dependence on supplemental oxygen; E55.9 Vitamin D deficiency, unspecified; L40.9 Psoriasis, unspecified; M19.90 Unspecified osteoarthritis, unspecified site; R00.1 Bradycardia, unspecified
CPT/HCPCS: 36600; 71010; 80048; 80069; 82803; 82948; 84100; 84484; 85025; 85027; 93005; 93306; 94640; 94640 76; 94660; 94760; 94799; 99202; 99281; 99285; J0881; J1815; J1940; J2405; J2920; J2930; J7644; P9047